=== PATIENT | male | born 1960 | race Caucasian/White ===

== ENCOUNTER 2019-11-25 15:15 | Outpatient (CLI) | payer BC, SELFPAY ==
--- NOTE | 2019-11-25 16:59 | RAD ---
EXAM: 2 views of the left calcaneus HISTORY: Heel pain COMPARISON: None FINDINGS: There is no evidence of acute fracture or dislocation. Mild diffuse soft tissue swelling is seen. No significant calcaneal spurs are seen. IMPRESSION: No evidence of acute osseous abnormality.
== END 2019-11-25 15:16 | disposition home or self-care (01) ==
LOC: NAV RAD 15:15
PROVIDERS: ATTEND Internal Medicine
DX: S96.912A Strain of unspecified muscle and tendon at ankle and foot level, left foot, initial encounter (principal); M79.672 Pain in left foot